=== PATIENT | male | born 1940 | race Caucasian/White ===

== ENCOUNTER → 2018-05-22 | Outpatient (CLI) | payer BC ==
[~2018-05-22] MED LIST: ACTOS15 MG PO; COREG CR20 MG PO; GLUCOVANCE 5-51 EACH PO; LISINOPRIL20 MG PO; PRILOSEC 20 MG20 MG PO; SIMVASTATIN40 MG PO; SYNTHROID175 MCG PO
== END ==
LOC: M.RAD 11:33
DX: J98.4 Other disorders of lung (principal)